=== PATIENT | male | born 1980 | race Two or more races ===

== ENCOUNTER 2017-11-14 10:03 | Emergency (ER) | payer SELFPAY ==
[2017-11-14] MEDS ORDERED: predniSONE TAB* 50 MG PO ONE (11:05)
[2017-11-14] MEDS ORDERED: predniSONE TAB* 20 MG ONE (11:10)
[2017-11-14] MEDS ORDERED: predniSONE TAB* 10 MG ONE (11:10)
[2017-11-14] MEDS ORDERED: Colchicine* 0.6 MG TAB PO ONE (11:23)
[2017-11-14 11:31] VITALS: BP 141/90
--- NOTE | 2017-11-14 12:33 | ED ---
Lower Extremity - HPI Summary HPI Summary: Patient is a 37-year-old obese male with a history of gout presenting to the ED with right toe erythema and exquisite tenderness to palpation which radiates up into the dorsum of the foot and to the heel. He denies any fevers, sweats, chills. Symptoms began early this morning, was acute onset and he feels the area has been worsening. Ibuprofen 600mg this morning without relief. He states he is on allopurinol daily. Denies any rashes, open wounds, cuts or any previous cellulitis or abscess infections. He states he has been feeling otherwise well. He remains ambulatory, but with pain. Pain is currently a 10/ 10, burning and aching. - History of Current Complaint Chief Complaint: EDExtremityLower Stated Complaint: RT FOOT PAIN Time Seen by Provider: 11/14/17 10:19 Hx Obtained From: Patient Onset of Pain: Hours Onset/Duration: Hours Severity Initially: Severe Severity Currently: Severe Pain Intensity: 10 Pain Scale Used: 0-10 Numeric Timing: Constant Location: Is Discrete @ - right great toe Character Of Pain: Aching, Throbbing, Burning Associated Signs And Symptoms: Positive: Swelling, Redness. Negative: Fever, Weakness, Dizziness, Syncope Aggravating Factor(s): Standing, Ambulation Alleviating Factor(s): Rest Able to Bear Weight: Yes - Risk Factors Gout Risk Factors: Age Over 40, Male, Alcohol Abuse, Obesity DVT Risk Factors: Negative Septic Arthritis Risk Factor: Negative - Allergies/Home Medications Allergies/Adverse Reactions: Allergies Allergy/AdvReac Type Severity Reaction Status Date / Time MS Dust Mite Extract Allergy Intermediate Sneezing Verified 05/07/15 16:55 [Dust Mite Extract] PMH/Surg Hx/FS Hx/Imm Hx Previously Healthy: Yes Endocrine/Hematology History: Reports: Hx Thyroid Disease - hypothyroidism Denies: Hx Diabetes Cardiovascular History: Denies: Hx Hypertension Respiratory History: Denies: Hx Asthma, Hx Chronic Obstructive Pulmonary Disease (COPD) GI History: Denies: Hx Ulcer - Immunization History Hx Pertussis Vaccination: No Immunizations Up to Date: Yes Infectious Disease History: No Infectious Disease History: Denies: Hx Hepatitis, Hx Human Immunodeficiency Virus (HIV), Traveled Outside the [place] in Last 30 Days - Family History Known Family History: Positive: Unknown - Social History Occupation: Employed Full-time Lives: With Family Alcohol Use: Occasionally Hx Substance Use: Yes Substance Use Type: Reports: Marijuana Substance Use Comment - Amount & Last Used: rarely Hx Tobacco Use: No Smoking Status (MU): Former Smoker Amount Used/How Often: 1 PACK/WEEK Have You Smoked in the Last Year: Yes Review of Systems Constitutional: Negative Negative: Fever, Chills, Fatigue, Skin Diaphoresis Negative: Palpitations, Chest Pain Negative: Shortness Of Breath, Cough Genitourinary: Negative Positive: no symptoms reported, see HPI Positive: Arthralgia - right great toe and right dorsum of the foot Positive: Other - erythematous blanchable right great toe Neurological: Negative All Other Systems Reviewed And Are Negative: Yes Physical Exam Triage Information Reviewed: Yes Vital Signs On Initial Exam: Initial Vitals Temp Pulse Resp BP Pulse Ox 98 F 87 16 134/82 98 11/14/17 10:16 11/14/17 10:16 11/14/17 10:16 11/14/17 10:16 11/14/17 10:16 Vital Signs Reviewed: Yes Appearance: Positive: Well-Appearing, Well-Nourished Skin: Positive: Warm, Skin Color Reflects Adequate Perfusion, Other - erythematous right great toe Head/Face: Positive: Normal Head/Face Inspection Eyes: Positive: EOMI, CHRISTIE, Conjunctiva Clear Neck: Positive: Supple, No Lymphadenopathy Respiratory/Lung Sounds: Positive: Clear to Auscultation, Breath Sounds Present Cardiovascular: Positive: RRR, Pulses are Symmetrical in both Upper and Lower Extremities Musculoskeletal: Positive: Pain @ - right great toe pain Neurological: Positive: Sensory/Motor Intact, Alert, Oriented to Person Place, Time, CN Intact II-III, Speech Normal Psychiatric: Positive: Normal, Affect/Mood Appropriate AVPU Assessment: Alert Diagnostics - Vital Signs Vital Signs Temp Pulse Resp BP Pulse Ox 11/14/17 11:28 98.1 F 80 16 141/90 96 11/14/17 10:16 98 F 87 16 134/82 98 - Laboratory Lab Statement: Any lab studies that have been ordered have been reviewed, and results considered in the medical decision making process. Lower Extremity Course/Dx - Course Course Of Treatment: During the course of treatment, the patient is evaluated for a possible gout acute flareup. Symptoms began this morning, acute onset, 10 /10 pain and worse with palpation. The pain extends to the dorsum of the right foot into the heel. He remains ambulatory, but with pain. He continues to take allopurinol daily. He denies any fevers, sweats, chills and vital signs have remained stable. I have discussed starting him on colchicine until symptoms resolve. He is given 1.2 mg colchicine in the ED, with a repeat dose of 0.6 mg in 1 hour. He will then take 0.6 mg tomorrow morning if symptoms have not resolved and again 0.6 mg in the evening. He has no renal or hepatic impairment to his knowledge and he had labs obtained when he was placed on allopurinol a few years ago. He is given strict return precautions as well as side effects of diarrhea and abdominal cramping. If these develop he understands to discontinue the medication immediately. He does admit to eating a large amount of meat and drink alcohol on the last few days. Patient is a nonsmoker. He understands these return precautions and side effects and voices no concerns at this time. I've discussed cellulitis symptoms and if he develops any streaking up the leg he will return to the ED. Risk factors for gout are high and include obesity, meat intake, alcohol intake and age. - Diagnoses Differential Diagnosis/HQI/PQRI: Positive: Fracture (Closed), Gout, Infection, Osteomyelitis Provider Diagnoses: Gout attack Discharge - Sign-Out/Discharge Documenting (check all that apply): Patient Departure - Discharge Plan Condition: Stable Disposition: HOME Prescriptions: Colchicine* [Colcrys*] 0.6 mg PO DAILY #6 tab predniSONE TAB* [Deltasone TAB*] 50 mg PO DAILY #5 tab MDD 1 Patient Education Materials: Colchicine (By mouth), Low Purine Diet (ED), Gout (ED) Referrals: No Primary Care Phys,NOPCP [Primary Care Provider] - Additional Instructions: Take 1 tab of the colchicine in 1 hour Take 1 tab colchicine tomorrow morning and again tomorrow evening if the flare has not resolved Once the flare resolves, stop the colchicine as it has a side effect of diarrhea Prednisone once daily Start this medication tomorrow morning as we have given your first dose here in the ED This is a short course and does not require a taper If he develop any worsening or changing symptoms, return to the ED - Billing Disposition and Condition Condition: STABLE Disposition: Home
[2017-11-15] MEDS ORDERED: Colchicine* 0.6 MG TAB PO SCH (09:00)
== END 2017-11-14 11:28 | disposition home or self-care (01) ==
LOC: ED 10:03
DX: M10.9 Gout, unspecified (principal); Z79.899 Other long term (current) drug therapy; Z87.891 Personal history of nicotine dependence
CPT/HCPCS: 99282; J7512

== ENCOUNTER 2018-01-16 20:16 | Emergency (ER) | payer OTHER ==
[2018-01-16] MEDS ORDERED: predniSONE TAB* 20 MG PO ONE (20:45)
[2018-01-16] MEDS ORDERED: Albuterol/Ipratropium NEB.SOL* Albuterol 2.5 MG/Ipratropium 0.5 MG 3 ML INH ONE (20:45)
[2018-01-16] MEDS ORDERED: Indomethacin CAP* 25 MG CAP PO ONE (20:45)
[2018-01-16] MEDS ORDERED: Benzonatate CAP* 100 MG PO ONE (21:13)
[2018-01-16] MEDS ORDERED: Azithromycin TAB* 250 MG PO ONE (21:13)
--- NOTE | 2018-01-16 21:19 | ED ---
Lower Extremity - HPI Summary HPI Summary: 37-year-old male presents with right big toe pain for the the past couple days. He states he did miss a dose of allopurinol. He denies any alcohol or eating red meat recently. He states he has history of gout. States feels like his other episodes. no fevers. has Pain in his right big toe. He states that usually indomethacin and a steroid help with this. He states he tried to use cochline at home and did not help. He also admits to cough for the past week. He states that he started with cough for 3 weeks ago that resolved after week. States the cough came back. He states he has history asthma. He has been using his nebulizers with some relief. No fevers. No sinus congestion. No sore throat. No bowel pain. No chest pain. He denies any history of renal issues. No contraindications for steroids or indomethacin. - History of Current Complaint Chief Complaint: EDGeneral Stated Complaint: COUGH/POSS GOUT Time Seen by Provider: 01/16/18 20:30 Pain Intensity: 10 - Allergies/Home Medications Allergies/Adverse Reactions: Allergies Allergy/AdvReac Type Severity Reaction Status Date / Time dust mite Allergy Sneezing Uncoded 01/16/18 20:21 PMH/Surg Hx/FS Hx/Imm Hx Endocrine/Hematology History: Reports: Hx Thyroid Disease - hypothyroidism Denies: Hx Diabetes Cardiovascular History: Denies: Hx Hypertension Respiratory History: Denies: Hx Asthma, Hx Chronic Obstructive Pulmonary Disease (COPD) GI History: Denies: Hx Ulcer Infectious Disease History: No Infectious Disease History: Denies: Hx Hepatitis, Hx Human Immunodeficiency Virus (HIV), Traveled Outside the [place] in Last 30 Days - Family History Known Family History: Positive: Unknown - Social History Alcohol Use: Occasionally Hx Substance Use: Yes Substance Use Type: Reports: Marijuana Substance Use Comment - Amount & Last Used: rarely Hx Tobacco Use: No Smoking Status (MU): Former Smoker Type: Cigarettes Amount Used/How Often: 1 PACK/WEEK Have You Smoked in the Last Year: Yes Review of Systems Negative: Fever Negative: Sore Throat Negative: Chest Pain Positive: Cough. Negative: Shortness Of Breath Positive: Myalgia - right big toe pain All Other Systems Reviewed And Are Negative: Yes Physical Exam Triage Information Reviewed: Yes Vital Signs On Initial Exam: Initial Vitals Temp Pulse Resp BP Pulse Ox 97.2 F 97 20 140/71 95 01/16/18 20:18 01/16/18 20:18 01/16/18 20:18 01/16/18 20:18 01/16/18 20:18 Vital Signs Reviewed: Yes Appearance: Positive: Well-Appearing Skin: Positive: Other - erythema and edema to mcp right big toe Head/Face: Positive: Normal Head/Face Inspection Eyes: Positive: Normal, EOMI, CHRISTIE, Conjunctiva Clear ENT: Positive: Normal ENT inspection, Pharynx normal, TMs normal Respiratory/Lung Sounds: Positive: Breath Sounds Present, Wheezes Cardiovascular: Positive: Normal, RRR Abdomen Description: Positive: Nontender, Soft Bowel Sounds: Positive: Present Musculoskeletal: Positive: Normal Neurological: Positive: Normal Psychiatric: Positive: Normal Diagnostics - Vital Signs Vital Signs Temp Pulse Resp BP Pulse Ox 01/16/18 21:04 95 20 98 01/16/18 20:18 97.2 F 97 20 140/71 95 - Laboratory Lab Statement: Any lab studies that have been ordered have been reviewed, and results considered in the medical decision making process. - Radiology chest Xray Interpretation: No Acute Changes Radiology Interpretation Completed By: ED Physician Re-Evaluation - Re-Evaluation First Eval Re-Evaluation Time: 21:00 Change: Improved Comment: lungs CTA Lower Extremity Course/Dx - Course Course Of Treatment: 37-year-old male presents with right big toe pain for the the past couple days. He states he did miss a dose of allopurinol. He denies any alcohol or eating red meat recently. He states he has history of gout. States feels like his other episodes. no fevers. has Pain in his right big toe. He states that usually indomethacin and a steroid help with this. He states he tried to use cochline at home and did not help. He also admits to cough for the past week. He states that he started with cough for 3 weeks ago that resolved after week. States the cough came back. He states he has history asthma. He has been using his nebulizers with some relief. No fevers. No sinus congestion. No sore throat. No bowel pain. No chest pain. He denies any history of renal issues. No contraindications for steroids or indomethacin. On exam has edema and erythema and of MCP right toe. Full range of motion with pain. No streaking. Lungs has some wheezing and congestion present. Gave treatment and lungs clear. chest xray read by me as normal. will give Tessalon and will place on azithromycin due to recurrence of the cough. The patient understands agrees with plan. - Diagnoses Differential Diagnosis/HQI/PQRI: Positive: Gout, Infection, Other - pneumonia Provider Diagnoses: Bronchitis, Gout Discharge - Sign-Out/Discharge Documenting (check all that apply): Patient Departure - Discharge Plan Condition: Good Disposition: HOME Prescriptions: Albuterol 2.5MG/3ML (0.083%)* [Ventolin 2.5 MG/3 ML NEB.DAVID*] 2.5 mg INH Q6H # 20 neb.david Azithromycin TAB* [Zithromax TAB (Z-BLANK) 250 mg #6 tabs] 250 mg PO DAILY #4 tab Benzonatate CAP* [Tessalon 100 MG CAP*] 100 mg PO TID PRN #21 cap PRN Reason: Cough Indomethacin CAP* [Indocin CAP*] 50 mg PO TID PRN #21 cap PRN Reason: Pain predniSONE TAB* [Deltasone 20 MG TAB*] 40 mg PO DAILY #8 tab Patient Education Materials: Gout (ED), Acute Bronchitis (ED) Referrals: No Primary Care Phys,NOPCP [Primary Care Provider] - Additional Instructions: Use inhaler up to two puffs every 6 hours for cough and wheezing Take steroid two tablets once a day for 4 more days starting tomorrow Take antibiotic once daily starting tomorrow for 4 days take indomethacin three times a day, stop ibuprofen use tessalon up to three times a day for cough Take Tylenol for pain every 6 hours as needed Return to ED if develop severe shortness of breath, worsening chest pain, or any new or worsening symptoms - Billing Disposition and Condition Condition: GOOD Disposition: Home
[2018-01-16 21:30] VITALS: BP 99/68
--- NOTE | 2018-01-17 07:52 | RAD ---
HISTORY: cough COMPARISONS: None VIEWS: 4: Frontal dual-energy and lateral views of the chest. FINDINGS: CARDIOMEDIASTINAL SILHOUETTE: The cardiomediastinal silhouette is normal. JACOB: The jacob are normal. PLEURA: The costophrenic angles are sharp. No pleural abnormalities are noted. LUNG PARENCHYMA: The lungs are clear. ABDOMEN: The upper abdomen is clear. There is no subphrenic gas. BONES AND SOFT TISSUES: No bone or soft tissue abnormalities are noted. OTHER: None. IMPRESSION: NO ACTIVE CARDIOPULMONARY DISEASE. R0
== END 2018-01-16 21:30 | disposition home or self-care (01) ==
LOC: ED 20:16
DX: J40 Bronchitis, not specified as acute or chronic (principal); M10.9 Gout, unspecified; M79.674 Pain in right toe(s); Z87.891 Personal history of nicotine dependence
CPT/HCPCS: 71046; 99282; A9270-GY; J7512

== ENCOUNTER 2018-04-28 07:17 | Emergency (ER) | payer OTHER ==
[2018-04-28 09:11] VITALS: BP 131/87
--- NOTE | 2018-04-28 10:30 | ED ---
Lower Extremity - HPI Summary HPI Summary: Patient is a 38-year-old male with a history of gout presenting to the ED with left-sided little to pain, erythema and warmth. He denies history of diabetes. He states he was seen at [address] [place] [address] urgent care last week and given prednisone only. He states in the past he is needed indomethacin for good relief of his symptoms. He was given this 2 months ago on his previous flareup which improved his symptoms. He states normally his flareup includes only the left great toe, but has molar recently been including the little toe and the top of the foot. He has not taken any other medications for relief. He remains ambulatory, however with discomfort. Denies any fevers, sweats, chills. Denies any streaking red up the leg. - History of Current Complaint Chief Complaint: EDExtremityLower Stated Complaint: FOOT PAIN Time Seen by Provider: 04/28/18 07:44 Hx Obtained From: Patient Onset of Pain: Hours Onset/Duration: Hours Severity Initially: Moderate Severity Currently: Moderate Pain Intensity: 2 Pain Scale Used: 0-10 Numeric Timing: Constant Location: Is Discrete @ - left little toe Character Of Pain: Aching Associated Signs And Symptoms: Negative: Swelling, Bruising Aggravating Factor(s): Standing, Movement Alleviating Factor(s): Rest Able to Bear Weight: Yes - Risk Factors Gout Risk Factors: Age Over 40, Male, Hypertension, Obesity DVT Risk Factors: Negative Septic Arthritis Risk Factor: Negative - Allergies/Home Medications Allergies/Adverse Reactions: Allergies Allergy/AdvReac Type Severity Reaction Status Date / Time dust mite Allergy Sneezing Uncoded 04/28/18 07:31 Home Medications: Home Medications Albuterol 2.5MG/3ML (0.083%)* [Ventolin 2.5 MG/3 ML NEB.DAVID*] 2.5 mg INH Q6H PRN 04/28/18 [History Confirmed 04/28/18] Levothyroxine TAB* [Synthroid TAB*] 224 mcg PO DAILY 04/28/18 [History Confirmed 04/28/18] PMH/Surg Hx/FS Hx/Imm Hx Previously Healthy: Yes Endocrine/Hematology History: Reports: Hx Thyroid Disease - hypothyroidism Denies: Hx Diabetes Cardiovascular History: Denies: Hx Hypertension Respiratory History: Denies: Hx Asthma, Hx Chronic Obstructive Pulmonary Disease (COPD) GI History: Denies: Hx Ulcer - Immunization History Hx Pertussis Vaccination: No Immunizations Up to Date: Yes Infectious Disease History: No Infectious Disease History: Denies: Hx Hepatitis, Hx Human Immunodeficiency Virus (HIV), Traveled Outside the [place] in Last 30 Days - Family History Known Family History: Positive: Unknown - Social History Occupation: Employed Full-time Lives: With Family Alcohol Use: Rare Hx Substance Use: Yes Substance Use Type: Reports: None Substance Use Comment - Amount & Last Used: rarely Hx Tobacco Use: No Smoking Status (MU): Former Smoker Type: Cigarettes Amount Used/How Often: 1 PACK/WEEK Have You Smoked in the Last Year: Yes Review of Systems Negative: Fever, Chills, Fatigue, Skin Diaphoresis Negative: Palpitations, Chest Pain Negative: Shortness Of Breath, Cough Positive: Arthralgia - left foot pain Positive: Other - erythema Neurological: Negative Psychological: Normal All Other Systems Reviewed And Are Negative: Yes Physical Exam Triage Information Reviewed: Yes Vital Signs On Initial Exam: Initial Vitals Temp Pulse Resp BP Pulse Ox 97.0 F 91 20 116/69 94 04/28/18 07:28 04/28/18 07:28 04/28/18 07:28 04/28/18 07:28 04/28/18 07:28 Vital Signs Reviewed: Yes Appearance: Positive: Well-Appearing, Well-Nourished Skin: Positive: Other - erythema to the left little toe Head/Face: Positive: Normal Head/Face Inspection Eyes: Positive: EOMI Neck: Positive: Supple, No Lymphadenopathy Respiratory/Lung Sounds: Positive: Clear to Auscultation, Breath Sounds Present Cardiovascular: Positive: RRR Musculoskeletal: Positive: Pain @ - left lateral foot pain Neurological: Positive: Speech Normal Psychiatric: Positive: Affect/Mood Appropriate AVPU Assessment: Alert Diagnostics - Vital Signs Vital Signs Temp Pulse Resp BP Pulse Ox 04/28/18 09:10 97.1 F 87 19 131/87 96 04/28/18 07:28 97.0 F 91 20 116/69 94 - Laboratory Lab Statement: Any lab studies that have been ordered have been reviewed, and results considered in the medical decision making process. Lower Extremity Course/Dx - Course Course Of Treatment: [place] treatment, the patient's evaluated for left- sided little foot erythema and warmth and pain on palpation. He states he has a history of gout and states this feels like his normal flareup. He states he usually takes indomethacin for relief, however was not given this at [address] [place] [address] urgent care last week and when he was being seen. He is requesting this on today's visit. He denies any fevers, sweats, chills. Denies any red streaking up the leg. He states he is otherwise healthy. He remains ambulatory. He is given a prescription for indomethacin up to 3 times daily. - Diagnoses Differential Diagnosis/HQI/PQRI: Positive: Gout Provider Diagnoses: Gout attack Discharge - Sign-Out/Discharge Documenting (check all that apply): Patient Departure - Discharge Plan Condition: Stable Disposition: HOME Prescriptions: Indomethacin CAP* [Indocin CAP*] 50 mg PO TID PRN #21 cap PRN Reason: Pain Patient Education Materials: Low Purine Diet (ED), Gout (ED) Referrals: No Primary Care Phys,NOPCP [Primary Care Provider] - Additional Instructions: If he develop any worsening or changing symptoms, return to the ED As discussed in the ED, you may need a follow-up x-ray or further workup for your for pain if this does not resolve with indomethacin - Billing Disposition and Condition Condition: STABLE Disposition: Home
== END 2018-04-28 09:10 | disposition home or self-care (01) ==
LOC: ED 07:17
DX: M10.9 Gout, unspecified (principal); M79.672 Pain in left foot; F17.210 Nicotine dependence, cigarettes, uncomplicated
CPT/HCPCS: 99282

== ENCOUNTER 2018-11-16 12:12 | Emergency (ER) | payer OTHER ==
--- NOTE | 2018-11-16 13:22 | ED ---
Lower Extremity - HPI Summary HPI Summary: Patient is a 38-year-old male who presents emergency department with ongoing left foot pain for about a week. Patient does not recall any specific injuries but states last week he was at [employer] walking a lot and pushing someone in a wheelchair. Patient states shortly after his left foot started hurting. Patient states yesterday he was standing on a ladder and had increased pain to his left foot. Patient does note a history of gout. He denies any redness, wounds. Sxs are mild in severity. Walking makes sxs worse. Rest makes sxs better. - History of Current Complaint Chief Complaint: EDExtremityLower Stated Complaint: LEFT FOOT INJURY Time Seen by Provider: 11/16/18 12:57 Hx Obtained From: Patient Pain Intensity: 10 - Allergies/Home Medications Allergies/Adverse Reactions: Allergies Allergy/AdvReac Type Severity Reaction Status Date / Time No Known Allergies Allergy Verified 11/16/18 13:45 PMH/Surg Hx/FS Hx/Imm Hx Previously Healthy: Yes Endocrine/Hematology History: Reports: Hx Thyroid Disease - hypothyroidism Denies: Hx Diabetes Cardiovascular History: Denies: Hx Hypertension Respiratory History: Denies: Hx Asthma, Hx Chronic Obstructive Pulmonary Disease (COPD) GI History: Denies: Hx Ulcer Infectious Disease History: No Infectious Disease History: Denies: Hx Hepatitis, Hx Human Immunodeficiency Virus (HIV), Traveled Outside the [place] in Last 30 Days - Family History Known Family History: Positive: Unknown, Non-Contributory - Social History Occupation: Unemployed Lives: With Family Alcohol Use: Rare Hx Substance Use: Yes Substance Use Type: Reports: None Substance Use Comment - Amount & Last Used: rarely Hx Tobacco Use: No Smoking Status (MU): Former Smoker Type: Cigarettes Amount Used/How Often: 1 PACK/WEEK Have You Smoked in the Last Year: Yes Review of Systems Positive: Other - Pain to left lateral foot Skin: Negative Negative: Weakness, Paresthesia, Numbness All Other Systems Reviewed And Are Negative: Yes Physical Exam Triage Information Reviewed: Yes Vital Signs On Initial Exam: Initial Vitals Temp Pulse Resp BP Pulse Ox 97.2 F 94 16 126/76 95 11/16/18 12:19 11/16/18 12:19 11/16/18 12:19 11/16/18 12:19 11/16/18 12:19 Vital Signs Reviewed: Yes Appearance: Positive: Well-Appearing - Pt. sitting on bed in NAD. Obese. Friend present. Skin: Positive: Warm, Dry Head/Face: Positive: Normal Head/Face Inspection Eyes: Positive: Normal, EOMI Musculoskeletal: Positive: Other - Pain on palpation to left foot over 5th metatarsal. No edema or ecchymosis. No wounds or erythema. Neurological: Positive: Normal, CN Intact II-III Psychiatric: Positive: Affect/Mood Appropriate Diagnostics - Vital Signs Vital Signs Temp Pulse Resp BP Pulse Ox 11/16/18 12:19 97.2 F 94 16 126/76 95 - Laboratory Lab Statement: Any lab studies that have been ordered have been reviewed, and results considered in the medical decision making process. Lower Extremity Course/Dx - Course Course Of Treatment: Pt. presenting with left foot pain. He does have a hx of gout but pain does not seem to be in a joint and there is no redness. Foot xray negative for acute findings per radiology. Suspect strain. Amadou wrap and post op shoe placed. Pt. concerned pain may be gout. Pt. requesting a rx for indomethacin that has helped with his gout in the past. Advised ice and elevation. Activity as tolerated. Will f.u with PCP. - Diagnoses Differential Diagnosis/HQI/PQRI: Positive: Fracture (Closed), Sprain, Strain Provider Diagnoses: Foot sprain Discharge - Sign-Out/Discharge Documenting (check all that apply): Patient Departure Patient Received Moderate/Deep Sedation with Procedure: No - Discharge Plan Condition: Good Disposition: HOME Prescriptions: Indomethacin CAP* [Indocin CAP*] 50 mg PO TID PRN 7 Days #21 cap PRN Reason: Pain - Moderate Patient Education Materials: Foot Sprain (ED) Referrals: Pretty Waller [Primary Care Provider] - Additional Instructions: Follow up with PCP or orthopedics if pain persist Ice and elevate Wear splint for comfort Tylenol or Motrin for pain as directed Pt. understands and agrees with plan - Billing Disposition and Condition Condition: GOOD Disposition: Home
[2018-11-16 14:56] VITALS: BP 120/74
== END 2018-11-16 14:54 | disposition home or self-care (01) ==
LOC: ED 12:12
DX: S93.602A Unspecified sprain of left foot, initial encounter (principal); X58.XXXA Exposure to other specified factors, initial encounter; Y92.9 Unspecified place or not applicable; E03.9 Hypothyroidism, unspecified; Z87.891 Personal history of nicotine dependence
CPT/HCPCS: 99282